=== PATIENT | female | born 1965 | race Two or more races ===

== ENCOUNTER 2022-09-19 03:18 | Emergency (ER) | payer OTHER ==
[~2022-09-19] VITALS: Ht 175.3 cm; Wt 59.0 kg
[2022-09-19] MEDS ORDERED: OLANZAPINE 10 MG VIAL IM ONE ×4 (03:36→11:44)
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
--- NOTE | 2022-09-19 03:42 | NUR ---
JANAY ([facility])
--- NOTE | 2022-09-19 03:58 | NUR ---
PT TAKEN TO CT VIA [facility]
[2022-09-19] MEDS ORDERED: LORAZEPAM INJ 2 MG/ML VIAL IM ONE (04:30)
[2022-09-19] MEDS ORDERED: LORAZEPAM INJ 2 MG/ML VIAL ONE ×2 (04:32→23:56)
--- NOTE | 2022-09-19 04:32 | NUR ---
PATIENT CONDSENTED TO ADD JANAY [place] NEIGHBOR TO THE CONTACT LIST
--- NOTE | 2022-09-19 04:56 | NUR ---
PHLE[facility] AT BEDSIDE
--- NOTE | 2022-09-19 05:26 | NUR ---
PT BEING TRANSPORTED TO CT
[2022-09-19 05:29] LABS: BASOPHILS % (AUTO) 0.2 % (0.0-2.0); HEMATOCRIT 35 % (33-45); HEMOGLOBIN 11.7 g/dL (11.5-14.8); LYMPHOCYTES # (AUTO) 0.3 K/uL (0.8-4.8); LYMPHOCYTES % (AUTO) 5.5 % (20.0-44.0); MEAN CORPUSCULAR HGB CONC 34 g/dl (31.0-36.0); MEAN CORPUSCULAR VOLUME 102 fL (82-100); MONOCYTES # (AUTO) 0.8 K/uL (0.1-1.30); MONOCYTES % (AUTO) 14.1 % (2.0-12.0); NEUTROPHILS # (AUTO) 4.5 K/uL (1.8-8.9); NEUTROPHILS % (AUTO) 80.2 % (43.0-81.0); PLATELET COUNT (AUTO) 80 K/uL (150-450); RED BLOOD CELL COUNT(AUTO) 3.42 MIL/uL (4.0-5.2); WHITE BLOOD COUNT (AUTO) 5.6 K/uL (4.3-11.0)
[2022-09-19 05:50] LABS: ACETAMINOPHEN < 10 ug/ml (10-30); ALANINE AMINOTRANSFERASE 44 U/L (12-78); ALBUMIN 4.4 g/dL (3.4-5.0); ALCOHOL, BLOOD < 3 mg/dL (0-0); ALKALINE PHOSPHATASE 69 U/L (46-116); ASPARTATE AMINOTRANSFERASE 71 U/L (15-37); BILIRUBIN,DIRECT 0.5 mg/dL (0.0-0.2); CALCIUM, SERUM 10.8 mg/dL (8.5-10.1); CARBON DIOXIDE 30 mmol/L (21-32); CHLORIDE 93 mmol/L (98-107); CREATININE 1.1 mg/dL (0.6-1.3); GLUCOSE 138 mg/dL (74-106); POTASSIUM 3.3 mmol/L (3.5-5.1); SODIUM SERUM 136 mmol/L (136-145); TOTAL PROTEIN, SERUM 8.5 g/dL (6.4-8.2); UREA NITROGEN, BLOOD 46 mg/dL (7-18)
--- NOTE | 2022-09-19 06:21 | NUR ---
urine sent to lab
--- NOTE | 2022-09-19 06:55 | NUR ---
PT PROVIDED CONSENT TO GIVE UPDATES TO DAUGHTER HUA AND JANAY . PER DAUGHTER REQUEST, EITHER CONTACTS CAN BE CONTACTED FOR UPDATES ON POSSIBLE PSYCHIATRIC ADMISSION/TRANSFER.
[2022-09-19 08:39] LABS: BILIRUBIN,URINE 2+ (NEGATIVE); COLOR,URINE YELLOW (YELLOW); LEUKOCYTE ESTERASE ,URINE NEGATIVE (NEGATIVE); NITRITE, URINE NEGATIVE (NEGATIVE); PH,URINE 6.5 (5.0-8.0); PROTEIN,URINE 1+ mg/dl (NEGATIVE); UGLUCOSE NEGATIVE (NEGATIVE)
--- NOTE | 2022-09-19 09:41 | NUR ---
JOSSY CALLED ON HER WAY.
--- NOTE | 2022-09-19 10:32 | NUR ---
BROTHER JANAY [phone]
--- NOTE | 2022-09-19 11:57 | NUR ---
ZYPREXA IM GIVEN LEFT DELTOID.
[2022-09-19 17:23] LABS: BAND % (MANUAL) 9 % (0.0-5.0); BASOPHILS % (MANUAL) 0 % (0.0-2.0); EOSINOPHILS % (MANUAL) 0 % (0-4); LYMPHOCYTES % (MANUAL) 9 % (16-48); MONOCYTES % (MANUAL) 11 % (0-11.0); NEUTROPHILS % (MANUAL) 71 (42-76)
[2022-09-19] MEDS ORDERED: HALOPERIDOL LACTATE INJ 5 MG/ML VIAL ONE (22:44)
[2022-09-19] MEDS ORDERED: HALOPERIDOL LACTATE INJ 5 MG/ML VIAL IM ONE (23:00)
--- NOTE | 2022-09-20 01:13 | NUR ---
PT SLEEPING IN BED. SAFETY MEASURES IN PLACE. VSS.
--- NOTE | 2022-09-20 06:32 | NUR ---
GAVE REPORT TO [facility]AR[facility] REP; WILL CALL BACK FOR UPDATE LATER.
--- NOTE | 2022-09-20 07:04 | NUR ---
UPDATED BROTHER JANAY [phone]
--- NOTE | 2022-09-20 10:13 | NUR ---
Awake, gets easily agitated and cooperative at time. Re-evaluated and updated by Dr Beck
[2022-09-20] MEDS ORDERED: risperiDONE-M 0.5 MG TAB.RAPDIS PO SCH (10:30)
[2022-09-20] MEDS ORDERED: LORAZEPAM INJ 2 MG/ML VIAL IM ONE ×2 (10:30)
--- NOTE | 2022-09-20 10:40 | NUR ---
MOVE SHEET SUBMITTED.
--- NOTE | 2022-09-20 11:00 | NUR ---
Jaqui - Director Of Home Health Services is arranging transfer to accepting facility. Clinicals faxed to number provided
[2022-09-20] MEDS ORDERED: QUET50TA15 PO (11:09)
--- NOTE | 2022-09-20 11:21 | NUR ---
FAXED CLINICALS TO [facility]. FAX: [phone] FAX: [phone].
--- NOTE | 2022-09-20 12:25 | NUR ---
PT AWAKE, HYPER VERBAL RR EVEN & UNLABORED. WILL CONT TO MONITOR.
[2022-09-20] MEDS ORDERED: LORAZEPAM INJ 2 MG/ML VIAL ONE (13:05)
--- NOTE | 2022-09-20 13:24 | NUR ---
MEDICATED PER ERMD ORDER, PT KECIA WELL. WILL CONT TO MONITOR.
[2022-09-20] MEDS ORDERED: LORAZEPAM INJ 2 MG/ML VIAL IV ONE (13:30)
[2022-09-20] MEDS ORDERED: IV NS 0.9% 1,000 ML IV ONE (13:30)
--- NOTE | 2022-09-20 13:32 | NUR ---
PER HAMILTON DE [facility] [phone] [place] [facility] WILL CALL, PLEASE CALL CM WHEN [facility] FINISHED
--- NOTE | 2022-09-20 13:39 | NUR ---
DR. KO ON THE PHONE WITH DR. KEY [facility].
--- NOTE | 2022-09-20 13:42 | NUR ---
[facility] ARRANGING TRANSPORT. PENDING ETA.
[2022-09-20 13:50] VITALS: BP 138/79
[2022-09-20] MEDS ORDERED: IV NS 0.9% 500 ML BAG IV ONE (14:00)
--- NOTE | 2022-09-20 14:03 | NUR ---
PER HAMILTON DE LOS SANTOS: PT ACCEPTED AT [facility]. TRANSPORT ETA 1530 WITH [facility]. [phone] [facility] FOR REPORT.
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
== END 2022-09-20 16:43 | disposition short-term general hospital (02) ==
LOC: ER 03:19
DX: F10.239 Alcohol dependence with withdrawal, unspecified (principal); Y90.0 Blood alcohol level of less than 20 mg/100 ml; R45.851 Suicidal ideations; Z20.822 Contact with and (suspected) exposure to COVID-19; F29 Unspecified psychosis not due to a substance or known physiological condition; F41.9 Anxiety disorder, unspecified
CPT/HCPCS: 99285; 96372 ×3; 70450; 85025; 80048; 80076; 85007; 81003; 36415; 87426; 80143; 80320; 80307; 96374; 96361; 87081; J2060 ×3; J1630; J3490 ×2; C9803; J7030; G0480